=== PATIENT | female | born 1980 ===

== ENCOUNTER → 2019-11-08 | Outpatient (CLI) | payer BC ==
[~2019-11-08] MED LIST: ALBU90OI INH; CEPH500 PO; CRUTCH USE; HYDGUAL120 PO; NAPR550 PO; OXYACE5T PO
[2019-11-08 15:25] LABS: Percent Saturation 24.9 % (15.0-50.0)
== END | disposition home or self-care (01) ==
LOC: LAB 13:52 → LAB SHORT 13:52
PROVIDERS: Internal Medicine Hematology & Oncology
DX: E53.8 Deficiency of other specified B group vitamins (principal); D50.9 Iron deficiency anemia, unspecified
CPT/HCPCS: 82607; 82746; 83540; 83550

== ENCOUNTER 2024-05-05 06:18 | Day surgery (SDC) | payer BC ==
[~2024-05-05] VITALS: Ht 165.1 cm; Wt 74.9 kg
[~2024-05-05 06:18] MED LIST changes: +DHEA 10 MG TAB1 EACH PO; +DIM PLUS CDG C1 EACH PO; +PROG100 PO; +Vitamin B-12100 MCG PO
[2024-05-05] MEDS ORDERED: Lactated Ringer's 1,000 ML IV ONE ×2 (07:16→07:17)
[2024-05-05] MEDS ORDERED: CeFAZolin Sodium 2,000 MG VIAL ONE (07:17)
[2024-05-05] MEDS ORDERED: SUPER C (07:24)
[2024-05-05] MEDS ORDERED: [UNRECOGNIZED DRUG - MIXTURE] (07:25)
[2024-05-05] MEDS ORDERED: ASHWAGANDHA300 MG PO (07:26)
[2024-05-05] MEDS ORDERED: propofoL 60 ML IV ONE (07:29)
[2024-05-05] MEDS ORDERED: FentaNYL Citrate 50 MCG/ML 2 ML Injection ONE (07:29)
[2024-05-05] MEDS ORDERED: Midazolam HCl 1MG / ML 2ML Vial ONE (07:29)
[2024-05-05] MEDS ORDERED: Ketorolac Tromethamine 30mg Vial ONE (07:50)
[2024-05-05] MEDS ORDERED: Glycopyrrolate 0.2 MG/ML 5ML VIAL ONE (07:50)
[2024-05-05] MEDS ORDERED: Ondansetron HCl 2 MG / ML 2ML Vial ONE (07:50)
[2024-05-05] MEDS ORDERED: Dexamethasone Sod Phos 10 MG/ML 1ML VIAL ONE (07:50)
--- NOTE | 2024-05-05 08:38 | NUR ---
05/05/24 0838 Ange Bianchi PT TO PACU, DROWSY-AROUSABLE TO VOICE. ANSWERS QUESTIONS AND FOLLOWS COMMANDS. PATIENT DENIES PAIN AND NAUSEA AT THIS TIME. VSS
--- NOTE | 2024-05-05 08:45 | NUR ---
05/05/24 0845 Ange Bianchi REPORT GIVEN TO MELANIE VILLA
[2024-05-05 08:57] VITALS: BP 121/73
[2024-05-05] MEDS ORDERED: OxyCODONE 5 mg/Acetamin 325 mg TABLET ONE (09:01)
== END 2024-05-05 09:33 | disposition home or self-care (01) ==
LOC: ORSCSDS 06:18
PROVIDERS: Obstetrics & Gynecology
PROC: 0U5B8ZZ Destruction of Endometrium, Via Natural or Artificial Opening Endoscopic (ICD-10-PCS; principal; 2024-05-05 07:30)
DX: N92.0 Excessive and frequent menstruation with regular cycle (principal); D25.9 Leiomyoma of uterus, unspecified; D50.0 Iron deficiency anemia secondary to blood loss (chronic); N94.6 Dysmenorrhea, unspecified; Z87.891 Personal history of nicotine dependence
CPT/HCPCS: 88305; A9270; J0690; J1100; J1885; J2250; J2405; J2704; J3010; J7120

== ENCOUNTER 2025-03-26 09:02 | Day surgery (SDC) | payer BC ==
[~2025-03-26] VITALS: Ht 165.1 cm; Wt 74.0 kg
[~2025-03-26 09:02] MED LIST changes: +ASHWAGANDHA300 MG PO; +SUPER C; +[UNRECOGNIZED DRUG - MIXTURE]
[2025-03-26] MEDS ORDERED: NS 500 ML IV ONE ×2 (09:34→09:45)
[2025-03-26] MEDS ORDERED: CeFAZolin Sodium 2,000 MG VIAL ONE (09:34)
[2025-03-26] MEDS ORDERED: PROG100 (09:38)
[2025-03-26] MEDS ORDERED: ERGO400 (09:38)
[2025-03-26] MEDS ORDERED: FISH OIL 1,0001 EA10 (09:39)
--- NOTE | 2025-03-26 09:48 | NUR ---
03/26/25 0948 Keely Wan LOCAL INJECTION TO RIGHT HAND AT 0941. TOTAL 5ML MIX OF 9ML 1% LIDOCAINE E/EPI 1:100,000 W/ 1ML SOD BICARB
[2025-03-26 10:50] VITALS: BP 121/86
== END 2025-03-26 10:59 | disposition home or self-care (01) ==
LOC: ORSCSDS 09:02
PROVIDERS: Orthopaedic Surgery
PROC: 0LN70ZZ Release Right Hand Tendon, Open Approach (ICD-10-PCS; principal; 2025-03-26 11:00)
PROC: 0RBW0ZX Excision of Right Finger Phalangeal Joint, Open Approach, Diagnostic (ICD-10-PCS; principal; 2025-03-26 11:00)
DX: M65.311 Trigger thumb, right thumb (principal); M67.441 Ganglion, right hand
CPT/HCPCS: 88304; J0690; J7040